=== PATIENT | male | born 1990 | race Two or more races ===

== ENCOUNTER 2016-12-23 01:06 | Emergency (ER) | payer OTHER ==
[~2016-12-23] VITALS: Ht 177.8 cm; Wt 70.5 kg
[2016-12-23] MEDS ORDERED: ONDANSETRON 2MG/ML, 2ML ONE (01:23)
[2016-12-23] MEDS ORDERED: ONDANSETRON 2MG/ML, 2ML IVPush ONE (01:30)
[2016-12-23] MEDS ORDERED: SODIUM CHLORIDE 0.9% 1,000ML IVBOLUS ONE (01:30)
[2016-12-23 01:39] LABS: HEMATOCRIT 48.4 % (39.2-51.8); HEMOGLOBIN 16.6 g/dL (13.7-18.0); WHITE BLOOD COUNT 8.6 x10^3/uL (3.4-10)
[2016-12-23 01:49] LABS: BLOOD UREA NITROGEN 8 mg/dL (7-18)
[2016-12-23 01:51] LABS: ACETAMINOPHEN < 2 mcg/mL (10-30)
[2016-12-23 06:21] VITALS: BP 99/45
== END 2016-12-23 06:47 | disposition home or self-care (01) ==
LOC: ED 06:41
DX: F10.120 Alcohol abuse with intoxication, uncomplicated (principal)
CPT/HCPCS: 36415; 80048; 80307; 80329; 82040; 85025; 96361; 96374; 99285; J2405; J7030; G0479; G0480